=== PATIENT | male | born 1960 | race Caucasian/White ===

== ENCOUNTER → 2023-12-22 07:19 | Outpatient (REF) | payer BC, SELFPAY ==
[2023-12-22 08:32] LABS: % Basophils 0.9 % (0-2); % Immature Granulocytes 0.1 % (0-0.5); % Monocytes 8.4 % (1.7-9.3); % Neutrophils 58.6 % (42.2-75.2); Absolute Basophils 0.1 10^3/uL (0-0.2); Absolute Eosinophils 0.4 10^3/uL (0-0.7); Absolute Lymphocytes 1.9 10^3/uL (1.2-3.4); Absolute Monocytes 0.6 10^3/uL (0.1-0.6); Absolute Neutrophils 4.1 10^3/uL (1.4-6.5); Hemoglobin 15.1 g/dL (13.0-18.0); Mean Corp Hgb Conc. 33.6 g/dL (33.0-37.0); Mean Corpuscular Hgb 32.6 pg (27.0-31.0); Mean Corpuscular Volume 97.2 fL (80.0-94.0); Nucleated Red Blood Cells % 0 % (-); Platelet Count 164 10^3/uL (130-400); Red Blood Cell Count 4.63 10^6/uL (4.70-6.10); Red Cell Dist. Width 12.8 % (11.5-14.5)
[2023-12-22 08:37] LABS: Urine Albumin Negative (Neg - Trace); Urine Bilirubin Negative (Negative); Urine Character Clear (Clear); Urine Color Yellow; Urine Glucose Negative (Negative); Urine Ketone Negative (Negative); Urine Leukocyte Negative (Negative); Urine Nitrite Negative (Negative); Urine Occult Blood Negative (Negative); Urine Specific Gravity 1.015 (<1.030); Urine Urobilinogen Negative (Neg - 1+)
[2023-12-22 08:41] LABS: INR 1.07; PT 13.7 Sec (11.4-14.6)
[2023-12-22 08:42] LABS: APTT 31.8 Sec (23.4-35.0)
[2023-12-22 08:50] LABS: Glycohemoglobin (HgbA1c) 6.3 % (4.0-5.6)
[2023-12-22 09:04] LABS: ALT (SGPT) 48 U/L (0-50); AST (SGOT) 45 U/L (17-59); Albumin 4.4 g/dl (3.5-5.0); Alkaline Phosphatase 60 U/L (38-126); Blood Urea Nitrogen 21 mg/dl (9-20); Calcium 9.9 mg/dl (8.4-10.2); Carbon Dioxide 27 mmol/L (22-30); Chloride 100 mmol/L (98-107); Direct Bilirubin 0.4 mg/dl (0.0-0.4); Glucose 105 mg/dl (70-99); HDL Cholesterol 57 mg/dl; LDL Cholesterol, Calculated 58 mg/dl; Phosphorus 3.7 mg/dl (2.5-4.5); Potassium 4.6 mmol/L (3.5-5.1); Sodium 136 mmol/L (135-145); Total Bilirubin 1.2 mg/dl (0.2-1.3); Total Cholesterol 141 mg/dl (50-199); Total Protein 7.4 g/dl (6.3-8.2); Triglyceride 133 mg/dl (10-149); Very Low Density Lipoprotein 26 mg/dl (0-30); eGFR > 60.00
[2023-12-22 09:30] LABS: TSH Reflex To Free T4 1.87 uIU/ml (0.47-4.68)
[2023-12-22 09:32] LABS: Hepatitis B Surface Antigen Negative (Negative)
[2023-12-22 09:50] LABS: Hepatitis B Core Ab, Total Negative (Negative); Hepatitis B Surface Antibody Negative
== END ==
LOC: REG 07:19
PROVIDERS: ATTENDING PHYSICIAN Internal Medicine Cardiovascular Disease; FAMILY PHYSICIAN Student in an Organized Health Care Education/Training Program
DX: I25.10 Atherosclerotic heart disease of native coronary artery without angina pectoris (principal); I48.91 Unspecified atrial fibrillation; E78.2 Mixed hyperlipidemia; I10 Essential (primary) hypertension; R73.03 Prediabetes; E66.01 Morbid (severe) obesity due to excess calories
CPT/HCPCS: 36415; 80053; 80061; 81003; 82248; 83036; 84100; 84443; 85025; 85610; 85730; 86704; 86706; 87340

== ENCOUNTER → 2023-12-25 | Outpatient (REF) | payer BC, SELFPAY | LOC: DHSLP | PROVIDERS: ATTENDING PHYSICIAN Internal Medicine Critical Care Medicine; FAMILY PHYSICIAN Student in an Organized Health Care Education/Training Program | DX: G47.33 Obstructive sleep apnea (adult) (pediatric) (principal) | CPT/HCPCS: 95800 ==

== ENCOUNTER → 2024-02-02 10:12 | Outpatient (REF) | payer BC, SELFPAY | LOC: RCS 10:12 | PROVIDERS: ATTENDING PHYSICIAN Internal Medicine Cardiovascular Disease; FAMILY PHYSICIAN Student in an Organized Health Care Education/Training Program | DX: I25.10 Atherosclerotic heart disease of native coronary artery without angina pectoris (principal); I48.91 Unspecified atrial fibrillation | CPT/HCPCS: 93306; Q9950 ==

== ENCOUNTER 2024-02-05 13:16 | Inpatient (IN) | payer BC, SELFPAY ==
[2024-02-05 06:46] VITALS: BP 128/84
--- NOTE | 2024-02-05 07:35 | ED.SKININJ ---
HPI-Injury
General
Chief Complaint: Skin Problem
Source: patient
Exam Limitations: none
Time Seen by Provider: 02/05/24 07:20
Travel History
Have you had any contact with someone who has COVID-19?: No
Do you have any symptoms of coronavirus? Fever > 100 degrees, chills, cough, shortness of breath, sore throat, loss of taste or smell, muscle aches, or headache?: No
History of Present Illness-Injury
Initial Injury comments:
63-year-old male with history of atrial fibrillation coronary artery disease hyperlipidemia presents complaining of pain redness and swelling to the left leg starting yesterday with associated chills sweats and fever. He denies any nausea or
vomiting. No known injury. He has not missed any doses of his Eliquis. No other at this time
Phy Exam
Physical Exam
Physical Exam:
General: Well-appearing male no acute respiratory distress
HEENT: Normocephalic atraumatic
Heart: Regular rate and rhythm no murmurs
Lungs: Clear no wheeze
skin: Erythema warmth tenderness noted over the left anterior miller. Erythema spreads proximally to about the knee. There is a blister noted on the lateral left calf.
Vascular: 2+ dorsalis pedis pulse left foot
Extremities: Mild edema left leg
Course
Orders/Labs/Results
Orders:
Orders
02/05/24 08:05
Basic Metabolic Panel Urgent
Complete Blood Count/With Diff Urgent
Lactic Acid Q4H
Comment: CANCEL 2nd LACTIC ACID IF 1st LACTIC ACID IS LESS THAN 2
Blood Culture Q30M
ANNE MARIE Source: Blood/Venous
Specimen Description:
Blood Culture Q30M
ANNE MARIE Source: Blood/Venous
Specimen Description:
02/05/24 09:14
Potassium Urgent
02/05/24 09:44
0.9% Sodium Chloride 1000 ml [Nss] 1,000 ml IV BOLUS
02/05/24 11:45
Lactic Acid Q4H
Comment: CANCEL 2nd LACTIC ACID IF 1st LACTIC ACID IS LESS THAN 2
Abnormal Lab Results
02/05/24
08:05
WBC 15.6 H 10^3/uL
(4.8-10.8)
RBC 4.64 L 10^6/uL
(4.70-6.10)
MCH 33.2 H pg
(27.0-31.0)
Abs Immat Gran (auto) 0.1 H 10^3/uL
(0-0.05)
Absolute Neuts (auto) 13.4 H 10^3/uL
(1.4-6.5)
Absolute Monos (auto) 0.9 H 10^3/uL
(0.1-0.6)
Neutrophils % 85.7 H %
(42.2-75.2)
Lymphocytes % 7.7 L %
(20.5-51.1)
Sodium 133 L mmol/L
(135-145)
Carbon Dioxide 20 L mmol/L
(22-30)
Glucose 130 H mg/dl
(70-99)
Lactic Acid 2.2 H mmol/L
(0.7-2.0)
02/05/24 08:05
02/05/24 09:14
Vital Signs
Initial and Last Documented VS:
Initial Vital Signs
Temp Pulse Resp BP Pulse Ox
98.4 F 82 18 128/84 97
02/05/24 06:46 02/05/24 06:46 02/05/24 06:46 02/05/24 06:46 02/05/24 06:46
Last Documented Vital Signs
Temp Pulse Resp BP Pulse Ox
98.4 F 82 18 128/84 97
02/05/24 06:46 02/05/24 06:46 02/05/24 06:46 02/05/24 06:46 02/05/24 06:46
MDM/Problems Addressed
Differential Diagnosis Includes:
Redness and pain left leg. Consider cellulitis. Unlikely to be DVT secondary to anticoagulated state. Patient describes more systemic symptoms such as fevers and chills. Will check labs including blood cultures and left acid.
*Critical Care Note
Total Time (30-74mins, 75-104mins- exclusive of procedures): Not Applicable
Update Note
Update Note:
White blood cell count 15,000 lactic acid 2.2. Patient notes subjective chills and sweats yesterday. Exam consistent with cellulitis. Recommend admission to hospital. 2 g Ancef ordered for cellulitis. He is not a known diabetic. Hold off on
MRSA coverage for now. Will discuss with hospitalist and admit
ED Attending Note
-
Portions of this chart may have been created with voice recognition software.� Occasional wrong word or��sound alike� substitutions may have occurred due to the inherent limitations of voice recognition software.
Discharge Plan
Departure
Patient Disposition: Admit
Date of Disposition: 02/05/24
Time of Disposition: 09:48
Admit to: Telemetry
Presentation/result/management discussed w/ accepting MD/DO: Hospitalist
Discharge Problem:
Cellulitis
Prescriptions:
No Action
multivitamin 1 EACH tablet
1 ea PO DAILY
metoprolol succinate 25 MG tablet extended release 24 hr
25 mg PO DAILY
docosahexaenoic acid-epa 1 CAP capsule
1 cap PO DAILY
lisinopril 5 mg Tablet
5 mg PO DAILY
furosemide [Lasix] 20 mg Tablet
20 mg PO DAILY
rosuvastatin [Crestor] 20 mg Tablet
20 mg PO DAILY
levalbuterol tartrate [Xopenex HFA] 45 mcg/actuation Hfa Aerosol Inhaler
2 inh INHALATION R Q6HPRN PRN (Reason: sob)
Eliquis 5 mg Tablet
5 mg PO BID
isosorbide mononitrate 30 MG tablet extended release 24 hr
30 mg PO DAILY
aspirin 81 MG tablet,chewable
81 mg PO DAILY
Referrals:
Vivien Riley DO [Family Provider] -
Interventions
Interventions:
*Risk Screen - Suicide Last Done: 02/05/24 06:46
*General Assessment Last Done: 02/05/24 08:32
*Neglect/Abuse Screening Last Done: 02/05/24 06:46
*ED COVID-19 Vaccine History Last Done: 02/05/24 08:32
ED-Skin Assessment Last Done: 02/05/24 08:32
Discharge Date and Time
Print Language: MARSHALLESE
[2024-02-05 07:55] VITALS: BMI 44.5
[2024-02-05 08:18] LABS: % Basophils 0.6 % (0-2); % Eosinophils 0.1 % (0-6); % Immature Granulocytes 0.3 % (0-0.5); % Lymphocytes 7.7 % (20.5-51.1); % Monocytes 5.6 % (1.7-9.3); % Neutrophils 85.7 % (42.2-75.2); Absolute Basophils 0.1 10^3/uL (0-0.2); Absolute Immature Granulocytes 0.1 10^3/uL (0-0.05); Absolute Lymphocytes 1.2 10^3/uL (1.2-3.4); Absolute Monocytes 0.9 10^3/uL (0.1-0.6); Absolute Neutrophils 13.4 10^3/uL (1.4-6.5); Hematocrit 43.3 % (39.0-52.0); Hemoglobin 15.4 g/dL (13.0-18.0); Mean Corp Hgb Conc. 35.6 g/dL (33.0-37.0); Mean Corpuscular Hgb 33.2 pg (27.0-31.0); Mean Corpuscular Volume 93.3 fL (80.0-94.0); Nucleated Red Blood Cells % 0 % (-); Platelet Count 160 10^3/uL (130-400); Red Blood Cell Count 4.64 10^6/uL (4.70-6.10); White Blood Cell Count 15.6 10^3/uL (4.8-10.8)
[2024-02-05 08:38] LABS: Lactic Acid 2.2 mmol/L (0.7-2.0)
[2024-02-05 08:44] LABS: Blood Urea Nitrogen 13 mg/dl (9-20); Calcium 9.5 mg/dl (8.4-10.2); Carbon Dioxide 20 mmol/L (22-30); Chloride 101 mmol/L (98-107); Estimated Creatinine Clearance > 125 ml/min; Glucose 130 mg/dl (70-99); Sodium 133 mmol/L (135-145); eGFR > 60.00
[2024-02-05] MEDS: ANCEF 10 IV ×2 (10:36→17:13)
[2024-02-05] MEDS: NSS 1000 IV (10:37)
[2024-02-05 10:45] VITALS: BP 130/86
--- NOTE | 2024-02-05 13:07 | HPS.HSE ---
Family Physician
-
Family Physician: Mariana Riley DO
Chief Complaint
-
Left leg Swelling, redness, pain
History of Present Illness
60-year-old gentleman with prior history of cardiac disease on Lasix presented with acute onset of pain, redness and swelling he noted in the left leg yesterday. he claims it was okay and the day before that.
Yesterday he went to work and he was all having sweats. Since yesterday was also experiencing a lot of chills. No fevers recorded.
Never had cellulitis.
Denies any trauma to the leg. Did not have any bug bites.
2 weeks ago he was in [place]. He was involved with water activities including ocean water and swimming pools. No pineda water.
He also has bilateral lower extremity edema for which he takes a low-dose Lasix. No recent increases in the weight or swelling of the legs. Denies shortness of breath at rest or chest pain.
A month ago he was discovered with A-fib and had an echocardiogram last Monday and also had a sleep study last week and is waiting to follow-up with physicians.
Denies history of diabetes mellitus or PAD.
Medical History
Past Medical History
Past Medical History: Reports Arrhythmia (afib), CAD and Hypercholesterolemia; Denies IDDM or NIDDM
Past Surgical History: Reports None
Social History
Tobacco: Non-smoker
Drug: None
Living: With Family
Family History
Family History: Not pertinent
Allergies / Home Medications
Allergies reflects when Allergies were last updated in [employer].
Home Medications with original date entered in [employer]
Allergy/Medication List:
Allergies
Allergy/AdvReac Type Severity Reaction Status Date / Time
bee venom protein (honey bee) Allergy Unknown Verified 02/05/24 06:50
Home Medications
docosahexaenoic acid (dha)-epa 120 mg-180 mg capsule 1 cap PO DAILY Supplement 10/30/17
metoprolol succinate 25 mg tablet,extended release 24 hr 25 mg PO DAILY Blood Pressure 10/30/17
multivitamin 1 ea PO DAILY Supplement 10/30/17
apixaban 5 mg tablet (Eliquis) 5 mg PO BID atrial fibrillation 02/05/24
aspirin 81 mg chewable tablet 81 mg PO DAILY Blood Clot Prevention/Tx 02/05/24
furosemide 20 mg tablet (Lasix) 20 mg PO DAILY Fluid Retention/Swelling 02/05/24
isosorbide mononitrate 30 mg tablet,extended release 24 hr 30 mg PO DAILY Heart Disease/Condition 02/05/24
levalbuterol tartrate 45 mcg/actuation aerosol inhaler (Xopenex HFA) 2 inh inhalation R Q6HPRN PRN sob 02/05/24
lisinopril 5 mg tablet 5 mg PO DAILY Blood Pressure 02/05/24
rosuvastatin 20 mg tablet 20 mg PO DAILY High Cholesterol 02/05/24
Review of Systems
-
A 12 point ROS was completed and negative except as noted: Yes
Physical Exam
Vital Signs
Vital Signs
Temp Pulse Resp BP Pulse Ox
98.4 F 80 18 130/86 97
02/05/24 06:46 02/05/24 10:45 02/05/24 10:45 02/05/24 10:45 02/05/24 10:45
Physical Exam
HEENT: Moist mucous membranes
Respiratory: Clear
Cardiac: S1/S2 and Regular Rhythm
GI: Soft
Musculoskeletal: Edema, Left Lower Extremity (red from ankle to all the way to knee and some of the anterior lower thigh area is red as well;Left knee without much of pain on motion. It is hot and very tender wendy in mid anterior leg)
Neuro: AO x 3
Psych: Calm
Laboratory Results
-
02/05/24 08:05
02/05/24 09:14
Laboratory Results
Lactic Acid 2.2 mmol/L (0.7-2.0) H 02/05/24 08:05
Total Bilirubin Cancelled 02/05/24 08:05
AST Cancelled 02/05/24 08:05
ALT Cancelled 02/05/24 08:05
Alkaline Phosphatase Cancelled 02/05/24 08:05
Data Reviewed
-
Lab Data: Labs Reviewed by me
Impression/Plan
-
Acute cellulitis of the left leg involving much of the leg. Patient with history of bilateral lower extremity swellowing predisposing to it .No hx of MDR not risk factors for it.
Admit to hospital. Start on IV Ancef. Keep left leg elevated. Increase the home dose of Lasix to help with the swelling. Follow culture data.
Atrial fibrillation-clinically in sinus rhythm-continue with anticoagulation Eliquis. Last known echo last week showed EF of 55 to 60% with no significant valvular heart disease.
CAD-asymptomatic without chest pain
Full code
[2024-02-05 16:00] VITALS: BP 148/85
[2024-02-05 16:40] LABS: Lactic Acid 1.6 mmol/L (0.7-2.0)
[2024-02-05 16:50] VITALS: BMI 44.8
[2024-02-05] MEDS: LASIX 20 MG IV (17:13)
[2024-02-05] MEDS: TYLENOL 650 MG PO (21:18)
[2024-02-05] MEDS: ELIQUIS 5 MG PO (21:18)
[2024-02-05 23:00] VITALS: BP 145/88
[2024-02-06] MEDS: ANCEF 10 IV ×3 (02:14→17:03)
[2024-02-06] MEDS: FLUSH (NSS) 2 FLUSH IV (02:14)
[2024-02-06 05:52] LABS: Hematocrit 42.2 % (39.0-52.0); Hemoglobin 14.3 g/dL (13.0-18.0); Mean Corp Hgb Conc. 33.9 g/dL (33.0-37.0); Mean Corpuscular Hgb 32.8 pg (27.0-31.0); Mean Corpuscular Volume 96.8 fL (80.0-94.0); Mean Platelet Volume 9.6 fL (7.4-10.4); Platelet Count 146 10^3/uL (130-400); Red Blood Cell Count 4.36 10^6/uL (4.70-6.10); White Blood Cell Count 15.6 10^3/uL (4.8-10.8)
[2024-02-06 06:00] VITALS: BMI 44.3
[2024-02-06 06:08] LABS: Blood Urea Nitrogen 11 mg/dl (9-20); Calcium 9.1 mg/dl (8.4-10.2); Carbon Dioxide 24 mmol/L (22-30); Chloride 101 mmol/L (98-107); Estimated Creatinine Clearance > 125 ml/min; Glucose 116 mg/dl (70-99); Potassium 4.2 mmol/L (3.5-5.1); Sodium 135 mmol/L (135-145); eGFR > 60.00
[2024-02-06 07:00] VITALS: BP 131/87
[2024-02-06] MEDS: TOPROL XL 25 MG PO (08:26)
[2024-02-06] MEDS: CRESTOR 20 MG PO (08:26)
[2024-02-06] MEDS: LOW STRENGTH ASPIRIN 81 MG PO (08:26)
[2024-02-06] MEDS: LASIX 20 MG IV ×2 (08:27→16:07)
[2024-02-06] MEDS: ELIQUIS 5 MG PO ×2 (08:27→21:11)
[2024-02-06] MEDS: ZESTRIL 5 MG PO (08:27)
[2024-02-06] MEDS: IMDUR (EXTENDED RELEASE) 30 MG PO (08:28)
--- NOTE | 2024-02-06 13:15 | W.PN.HOSP.TC ---
Today's Communication/Plan
-
Continue Ancef
Check an MRSA screen
Check ultrasound left leg
Assessment / Plan
Assessment / Plan
Acute cellulitis of the left leg involving much of the leg. Patient with history of bilateral lower extremity swelling predisposing to it .No hx of MDR not risk factors for it.
Start on IV Ancef - cw it . Keep left leg elevated. Increased the home dose of Lasix to help with the swelling. Follow culture data.Check MRSA screen. Obtain left leg US .
Atrial fibrillation-clinically in sinus rhythm-continue with anticoagulation Eliquis. Last known echo last week showed EF of 55 to 60% with no significant valvular heart disease.
CAD-asymptomatic without chest pain
Full code
Anticipated Discharge: > 48 hours
Subjective/Interval History
-
Date of Service: February 06, 2024
no further chills. He had a bit of sweats last night.
Very slight improvement in his left leg symptoms of pain. Redness is the same. Swelling is the same.
Objective Data
-
Labs:
Laboratory Results
02/06/24
05:18
WBC 15.6 H
Hgb 14.3
Hct 42.2
Plt Count 146
Sodium 135
Potassium 4.2
Chloride 101
Carbon Dioxide 24
BUN 11
Creatinine 0.7
Glucose 116 H
Calcium 9.1
Vital Signs:
Vital Signs
Temp Pulse Resp BP Pulse Ox
99.1 F 75 16 131/87 96
02/06/24 07:00 02/06/24 08:12 02/06/24 08:12 02/06/24 07:00 02/06/24 08:12
I&O
02/05/24 02/06/24 02/07/24
06:59 06:59 06:59
Intake Total 240 / 240
Balance 240 / 240
Review of Systems
-
Respiratory: Denies Trouble Breathing
Cardiac: Denies Chest Pain
Abdomen/GI: Denies Abdominal Pain, Nausea or Vomiting
Neuro: Denies Dizzy
Physical Exam
-
General: No Apparent Distress
HEENT: Moist Mucous Membranes
Respiratory: Clear to Auscultation
Cardiac: Regular Rhythm and S1/S2
Musculoskeletal: Edema, Left Lower Extrem (much the same as yesterdya)
Neuro: AO x 3
Data Reviewed
-
Labs: Labs Reviewed by me
[2024-02-06 15:00] VITALS: BP 107/74
--- NOTE | 2024-02-06 15:48 | PN.CDI ---
CDI
- -
CDI:
Physician Documentation Request
Admit Date: 02/05/24 13:16
Dear Doctor Farrukh,
Please review the following and provide your response in the progress notes.
Clinical Indicators:
Height: 6 ft
Weight:328
BMI: 44.5
If possible, please provide an associated diagnosis related to the abnormal BMI, such as:
BMI > or = to 40
Overweight
Obesity:
Due to excess calories
Drug induced
Due to other cause
Severe or morbid obesity:
With alveolar hypoventilation (Obesity hypoventilation syndrome)
Without alveolar hypoventilation
- BMI is not significant
- Other
Use of terms such as suspected, likely, concern for, or probable (associated with a specific diagnosis that is being evaluated, monitored, or treated as if it exists) are acceptable and can be coded in the inpatient setting, when documented at the
time of discharge.
Thank you,
Kayy Spears RN, BSN
CDI Specialist
tiger text
Please use your independent medical judgment in providing your response.
[2024-02-06] MEDS: MIRALAX 17 GRAMS PO (17:03)
--- NOTE | 2024-02-06 17:14 | CM ---
Alert awake oriented patient who lives with his Shabana who lives in a 1 story home with 1 step to enter and bed and bathroom on first floor. He is independent in driving and in all activities of daily living.He was offered VN he declined need.
No VN hx / No SNF history
Pharmacy [facility]
PCP DR Riley
PLAN Home Declined VN
[2024-02-06 20:30] VITALS: BMI 44.3
[2024-02-06] MEDS: COLACE PO (21:08)
[2024-02-06 23:35] VITALS: BP 125/73
[2024-02-07] MEDS: ANCEF 10 IV ×3 (02:42→18:08)
[2024-02-07] MEDS: FLUSH (NSS) 2 FLUSH IV (02:43)
[2024-02-07 05:41] LABS: Hematocrit 42.4 % (39.0-52.0); Hemoglobin 14.1 g/dL (13.0-18.0); Mean Corp Hgb Conc. 33.3 g/dL (33.0-37.0); Mean Corpuscular Hgb 32.5 pg (27.0-31.0); Mean Corpuscular Volume 97.7 fL (80.0-94.0); Mean Platelet Volume 9.5 fL (7.4-10.4); Platelet Count 153 10^3/uL (130-400); Red Blood Cell Count 4.34 10^6/uL (4.70-6.10); Red Cell Dist. Width 12.5 % (11.5-14.5); White Blood Cell Count 14.3 10^3/uL (4.8-10.8)
[2024-02-07 06:00] VITALS: BMI 43.9
[2024-02-07 07:00] VITALS: BP 106/82
[2024-02-07] MEDS: MIRALAX 17 GRAMS PO (08:13)
[2024-02-07] MEDS: LASIX 20 MG IV ×2 (08:14→16:13)
[2024-02-07] MEDS: TOPROL XL 25 MG PO (08:15)
[2024-02-07] MEDS: ELIQUIS 5 MG PO ×2 (08:15→19:51)
[2024-02-07] MEDS: LOW STRENGTH ASPIRIN 81 MG PO (08:15)
[2024-02-07] MEDS: COLACE 100 MG PO (08:15)
[2024-02-07] MEDS: CRESTOR 20 MG PO (08:15)
[2024-02-07] MEDS: ZESTRIL 5 MG PO (08:16)
[2024-02-07] MEDS: IMDUR (EXTENDED RELEASE) 30 MG PO (08:26)
--- NOTE | 2024-02-07 11:33 | W.PN.HOSP.TC ---
Today's Communication/Plan
-
cw IV Ancef
DC planning
Assessment / Plan
Assessment / Plan
Acute cellulitis of the left leg involving much of the leg. Patient with history of bilateral lower extremity swelling predisposing to it .No hx of MDR not risk factors for it.
Starting to improve both clinically and leukocytosis. Non bacteremic. No DVT
CW IV Ancef for another day . Keep left leg elevated. cw Increased home dose of Lasix to help with the swelling. .Check MRSA screen.
Atrial fibrillation-clinically in sinus rhythm-continue with anticoagulation Eliquis. Last known echo last week showed EF of 55 to 60% with no significant valvular heart disease.
CAD-asymptomatic without chest pain
Full code
Anticipated Discharge: Within 24 hours
Subjective/Interval History
-
Date of Service: February 07, 2024
starting to feel improved. Less redness. He less swelling. Less pain.
No fever or chills.
Objective Data
-
Labs:
Laboratory Results
02/07/24
05:13
WBC 14.3 H
Hgb 14.1
Hct 42.4
Plt Count 153
Vital Signs:
Vital Signs
Temp Pulse Resp BP Pulse Ox
98.8 F 72 18 106/82 95
02/07/24 07:00 02/07/24 07:00 02/07/24 07:00 02/07/24 07:00 02/07/24 07:00
I&O
02/06/24 02/07/24 02/08/24
06:59 06:59 06:59
Intake Total 240 / 240 960 / 960
Balance 240 / 240 960 / 960
Review of Systems
-
Respiratory: Denies Trouble Breathing
Cardiac: Denies Chest Pain
Abdomen/GI: Denies Nausea or Vomiting
Neuro: Denies Dizzy
Physical Exam
-
General: No Apparent Distress and Comfortable
Respiratory: Non Labored Respirations; Negative Accessory Resp Muscle Use
Musculoskeletal: Other ( Improved left leg swelling and redness. Still some localized tenderness in the mid anterior leg.)
Neuro: AO x 3
Data Reviewed
-
Labs: Labs Reviewed by me
[2024-02-07 15:00] VITALS: BP 126/78
[2024-02-07] MEDS: COLACE PO (19:52)
[2024-02-07 23:41] VITALS: BP 128/86
[2024-02-08] MEDS: ANCEF 10 IV ×2 (01:48→09:59)
[2024-02-08 03:52] VITALS: BMI 43.7
[2024-02-08 05:47] LABS: Hematocrit 40.7 % (39.0-52.0); Hemoglobin 14.1 g/dL (13.0-18.0); Mean Corp Hgb Conc. 34.6 g/dL (33.0-37.0); Mean Corpuscular Hgb 32.6 pg (27.0-31.0); Mean Platelet Volume 9.4 fL (7.4-10.4); Platelet Count 189 10^3/uL (130-400); Red Blood Cell Count 4.33 10^6/uL (4.70-6.10); Red Cell Dist. Width 12.4 % (11.5-14.5); White Blood Cell Count 11.4 10^3/uL (4.8-10.8)
[2024-02-08 06:00] VITALS: BMI 43.7
[2024-02-08 07:30] VITALS: BP 128/84
[2024-02-08] MEDS: IMDUR (EXTENDED RELEASE) 30 MG PO (08:07)
[2024-02-08] MEDS: LASIX 20 MG IV (08:08)
[2024-02-08] MEDS: LOW STRENGTH ASPIRIN 81 MG PO (08:08)
[2024-02-08] MEDS: TOPROL XL 25 MG PO (08:08)
[2024-02-08] MEDS: MIRALAX PO ×2 (08:08→08:15)
[2024-02-08] MEDS: COLACE 100 MG PO (08:08)
[2024-02-08] MEDS: ZESTRIL 5 MG PO (08:08)
[2024-02-08] MEDS: CRESTOR 20 MG PO (08:08)
[2024-02-08] MEDS: ELIQUIS 5 MG PO (08:08)
--- NOTE | 2024-02-08 13:22 | W.PN.HOSP.TC ---
Addendum entered and electronically signed by Pema Correia MD 02/09/24 09:46:
Obesity d/t excess calories
Original Note:
Today's Communication/Plan
-
dc to home later
Assessment / Plan
Assessment / Plan
Assessment:
Acute cellulitis of the left leg involving much of the leg. Patient with history of bilateral lower extremity swelling predisposing to it .No hx of MDR not risk factors for it.
- DVT study negative
- DC on Keflex x 10 days as MRSA screen negative. PCP F/u in 1 week. Compression therapy
Atrial fibrillation-clinically in sinus rhythm-continue with anticoagulation Eliquis. Last known echo last week showed EF of 55 to 60% with no significant valvular heart disease.
CAD-asymptomatic without chest pain
Full code
Anticipated Discharge: Today
Subjective/Interval History
-
Date of Service: February 08, 2024
denies any new complaints
Redness improving
Objective Data
-
Labs:
Laboratory Results
02/08/24
05:20
WBC 11.4 H
Hgb 14.1
Hct 40.7
Plt Count 189 D
Vital Signs:
Vital Signs
Temp Pulse Resp BP Pulse Ox
98.1 F 84 18 128/84 94
02/08/24 07:30 02/08/24 07:30 02/08/24 07:30 02/08/24 07:30 02/08/24 07:30
I&O
02/07/24 02/08/24 02/09/24
06:59 06:59 06:59
Intake Total 960 / 960 1080 / 1080
Output Total 2650 / 2650
Balance 960 / 960 -1570 / -1570
Physical Exam
-
General: No Apparent Distress
HEENT: Normocephalic and Atraumatic
Respiratory: Negative Wheezes or Rales
Cardiac: Regular Rhythm and S1/S2
GI: Soft
Genito-urinary: No Costovertebral Tender
Musculoskeletal: Other (left leg, redness improving, pain improving)
Neuro: AO x 3
Psych: Calm
Data Reviewed
-
Total Time Spent with Patient (in minutes): 41
Labs: Labs Reviewed by me
--- NOTE | 2024-02-08 13:30 | W.DS.TRANS ---
DC Summary - [employer]
-
Discharge Instructions:
Sleep Apnea Risk High
Discharge Diagnosis/Procedures LLE cellulitis
Diet Low Cholesterol
Activity As tolerated
Bathing Restrictions None
Instructions:
Stand-Alone Forms:
Changes to Home Medications: No
Discharge Medications:
DC Medications w/original date entered in [employer]
docosahexaenoic acid (dha)-epa 120 mg-180 mg capsule 1 cap PO DAILY Supplement 10/30/17
metoprolol succinate 25 mg tablet,extended release 24 hr 25 mg PO DAILY Blood Pressure 10/30/17
multivitamin 1 ea PO DAILY Supplement 10/30/17
apixaban 5 mg tablet (Eliquis) 5 mg PO BID atrial fibrillation 02/05/24
aspirin 81 mg chewable tablet 81 mg PO DAILY Blood Clot Prevention/Tx 02/05/24
furosemide 20 mg tablet (Lasix) 20 mg PO DAILY Fluid Retention/Swelling 02/05/24
isosorbide mononitrate 30 mg tablet,extended release 24 hr 30 mg PO DAILY Heart Disease/Condition 02/05/24
levalbuterol tartrate 45 mcg/actuation aerosol inhaler (Xopenex HFA) 2 inh inhalation R Q6HPRN PRN sob 02/05/24
lisinopril 5 mg tablet 5 mg PO DAILY Blood Pressure 02/05/24
rosuvastatin 20 mg tablet 20 mg PO DAILY High Cholesterol 02/05/24
cephalexin 500 mg capsule 500 mg PO QID #40 caps 02/08/24
Home Medication Changes
Pending Results: No
Total time spent discharging patient (in min): 41
[2024-02-08 13:31] VITALS: BP 140/85
--- NOTE | 2024-02-08 14:19 | CM ---
MD entered order for discharge.
Spoke with patient he is ready for discharge.
His will Kylie drive him home.
PLAN Home no needs
--- NOTE | 2024-02-08 14:24 | CM ---
MD entered order for discharge.
Spoke with patient he is ready for discharge.
His will Shabana drive him home.
PLAN Home no needs
== END 2024-02-08 16:02 | disposition home or self-care (01) | DRG 603 ==
LOC: 3 WEST ACU 13:16
PROVIDERS: Physician Assistant; ADMITTING PHYSICIAN Internal Medicine; ATTENDING PHYSICIAN Internal Medicine; EMERGENCY PHYSICIAN Emergency Medicine; FAMILY PHYSICIAN Student in an Organized Health Care Education/Training Program
DX: L03.116 Cellulitis of left lower limb (principal); Z68.41 Body mass index [BMI] 40.0-44.9, adult; I25.10 Atherosclerotic heart disease of native coronary artery without angina pectoris; I48.0 Paroxysmal atrial fibrillation; E66.09 Other obesity due to excess calories
CPT/HCPCS: 80048; 83605; 84132; 85025; 85027; 87040; 87070; 93971; 96361; 96374; 99285

== ENCOUNTER → 2024-02-21 18:28 | Outpatient (REF) | payer BC, SELFPAY | LOC: CLAB 18:28 | PROVIDERS: ATTENDING PHYSICIAN Nurse Practitioner Family | DX: L03.116 Cellulitis of left lower limb (principal) | CPT/HCPCS: 87070; 87205 ==

== ENCOUNTER → 2024-02-22 10:43 | Outpatient (REF) | payer BC, SELFPAY | LOC: RAD 10:43 | PROVIDERS: ATTENDING PHYSICIAN Nurse Practitioner Family; FAMILY PHYSICIAN Student in an Organized Health Care Education/Training Program | DX: M79.89 Other specified soft tissue disorders (principal) | CPT/HCPCS: 93971 ==

== ENCOUNTER → 2024-03-01 07:39 | Outpatient (REF) | payer BC, SELFPAY | LOC: RAD 07:39 | PROVIDERS: ATTENDING PHYSICIAN Internal Medicine Cardiovascular Disease; FAMILY PHYSICIAN Student in an Organized Health Care Education/Training Program | DX: I77.810 Thoracic aortic ectasia (principal); I71.21 Aneurysm of the ascending aorta, without rupture | CPT/HCPCS: 71275; Q9967 ==

== ENCOUNTER → 2024-04-05 09:03 | Day surgery (SDC) | payer BC, SELFPAY ==
[2024-04-05 10:49] VITALS: BMI 46.8
== END ==
LOC: CATH 09:03
PROVIDERS: ATTENDING PHYSICIAN Internal Medicine Cardiovascular Disease; FAMILY PHYSICIAN Student in an Organized Health Care Education/Training Program
DX: I48.91 Unspecified atrial fibrillation (principal); Z79.01 Long term (current) use of anticoagulants; Z79.82 Long term (current) use of aspirin; I25.10 Atherosclerotic heart disease of native coronary artery without angina pectoris; R06.00 Dyspnea, unspecified; I10 Essential (primary) hypertension
CPT/HCPCS: 92960; 93005

== ENCOUNTER → 2024-09-26 06:44 | Outpatient (REF) | payer BC, SELFPAY ==
[2024-09-26 07:32] LABS: Hematocrit 43.8 % (39.0-52.0); Hemoglobin 14.9 g/dL (13.0-18.0); Mean Corpuscular Hgb 32.7 pg (27.0-31.0); Mean Corpuscular Volume 96.3 fL (80.0-94.0); Mean Platelet Volume 9.4 fL (7.4-10.4); Platelet Count 179 10^3/uL (130-400); Red Blood Cell Count 4.55 10^6/uL (4.70-6.10); Red Cell Dist. Width 12.6 % (11.5-14.5); White Blood Cell Count 6.9 10^3/uL (4.8-10.8)
[2024-09-26 07:34] LABS: Urine Albumin Negative (Neg - Trace); Urine Bilirubin Negative (Negative); Urine Character Clear (Clear); Urine Color Yellow; Urine Glucose Negative (Negative); Urine Ketone Negative (Negative); Urine Leukocyte Negative (Negative); Urine Nitrite Negative (Negative); Urine Occult Blood Negative (Negative); Urine Specific Gravity 1.015 (<1.030); Urine Urobilinogen Negative (Neg - 1+)
[2024-09-26 08:04] LABS: ALT (SGPT) 71 U/L (0-50); AST (SGOT) 66 U/L (17-59); Albumin 4.6 g/dl (3.5-5.0); Alkaline Phosphatase 58 U/L (38-126); Blood Urea Nitrogen 21 mg/dl (9-20); Calcium 9.7 mg/dl (8.4-10.2); Carbon Dioxide 26 mmol/L (22-30); Chloride 99 mmol/L (98-107); Glucose 104 mg/dl (70-99); Phosphorus 3.9 mg/dl (2.5-4.5); Potassium 4.3 mmol/L (3.5-5.1); Sodium 136 mmol/L (135-145); Total Bilirubin 1.2 mg/dl (0.2-1.3); Total Protein 7.9 g/dl (6.3-8.2); eGFR > 60.00
[2024-09-26 08:15] LABS: Microalbumin, Random Urine <0.6 mg/dl (0.6-1.7)
[2024-09-26 08:30] LABS: PSA, Total - Screen 0.25 ng/ml (0.0-4.0); TSH 2.18 uIU/ml (0.47-4.68)
[2024-09-26 08:38] LABS: HDL Cholesterol 63 mg/dl; LDL Cholesterol, Calculated 71 mg/dl; Total Cholesterol 160 mg/dl (50-199); Triglyceride 133 mg/dl (10-149); Very Low Density Lipoprotein 26 mg/dl (0-30)
[2024-09-26 10:48] LABS: Glycohemoglobin (HgbA1c) 5.6 % (4.0-5.6)
== END ==
LOC: REG 06:44
PROVIDERS: ATTENDING PHYSICIAN Family Medicine; FAMILY PHYSICIAN Internal Medicine Cardiovascular Disease
DX: I10 Essential (primary) hypertension (principal); I48.0 Paroxysmal atrial fibrillation; Z12.5 Encounter for screening for malignant neoplasm of prostate; R73.03 Prediabetes; E66.01 Morbid (severe) obesity due to excess calories; E78.2 Mixed hyperlipidemia; I25.10 Atherosclerotic heart disease of native coronary artery without angina pectoris
CPT/HCPCS: 36415; 80053; 80061; 81003; 82043; 82570; 83036; 84100; 84443; 85027; G0103

== ENCOUNTER → 2025-03-07 06:42 | Outpatient (REF) | payer BC, SELFPAY | LOC: RAD 06:42 | PROVIDERS: ATTENDING PHYSICIAN Family Medicine | DX: Z87.891 Personal history of nicotine dependence (principal) | CPT/HCPCS: 71271 ==